=== PATIENT | female | born 1985 | race Caucasian/White ===

== ENCOUNTER 2019-12-11 15:20 | Emergency (ER) | payer MEDICAID ==
[~2019-12-11] VITALS: Ht 167.6 cm; Wt 79.8 kg
[2019-12-11 15:30] VITALS: BP 135/69
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
[2019-12-11 17:07] LABS: BASOPHILS # (AUTO) 0.03 x10^3/uL (0-0.1); BASOPHILS % (AUTO) 0 % (0-1); EOSINOPHILS % (AUTO) 1 % (1-7); LYMPHOCYTES # (AUTO) 1.94 x10^3/uL (1-3.4); LYMPHOCYTES % (AUTO) 27 % (22-44); MD NO; MEAN CORPUSCULAR HEMOGLOBIN 31.7 pg (27.0-34.8); MEAN CORPUSCULAR HGB CONC 32.8 g/dL (32.4-35.8); MEAN CORPUSCULAR VOLUME 96.8 fL (80-100); MEAN PLATELET VOLUME 8.2 fL (7.4-10.4); MONOCYTES # (AUTO) 0.44 x10^3/uL (0.2-0.8); MONOCYTES % (AUTO) 6 % (2-9); NEUTROPHILS # (AUTO) 4.66 x10^3/uL (1.8-6.8); NEUTROPHILS % (AUTO) 65 % (42-75); PLATELET COUNT 217 x10^3/uL (130-400); RED BLOOD COUNT 4.01 x10^6/uL (3.82-5.3); RED CELL DISTRIBUTION WIDTH 12.9 % (9.6-15.2)
[2019-12-11 17:18] LABS: ALBUMIN 3.3 g/dL (3.4-5.0); ANION GAP 4 mmol/L (5-15); CALCIUM 8.1 mg/dL (8.5-10.1); CHLORIDE 114 mmol/L (98-107); CREATININE 0.71 mg/dL (0.55-1.02)
[2019-12-11 17:22] LABS: CREATINE KINASE, TOTAL 77 U/L (26-192)
== END 2019-12-11 17:49 | disposition home or self-care (01) ==
LOC: ED 17:15
DX: R42 Dizziness and giddiness (principal); R55 Syncope and collapse; R51 Headache; R11.0 Nausea; R53.1 Weakness
CPT/HCPCS: 36415; 80048; 82040; 82550; 84703; 85025; 93005; 99284